=== PATIENT | female | born 1985 | race African-American/Black ===

== ENCOUNTER 2018-03-24 21:17 | Emergency (ER) | payer MEDICAID ==
[~2018-03-24] VITALS: Ht 172.7 cm; Wt 78.0 kg
[2018-03-24 21:24] VITALS: BP 112/68
== END 2018-03-24 22:17 | disposition left against medical advice (07) ==
LOC: ER 21:17
DX: Z04.1 Encounter for examination and observation following transport accident (principal); F41.9 Anxiety disorder, unspecified
CPT/HCPCS: 99283